=== PATIENT | female | born 2000 | race Caucasian/White ===

== ENCOUNTER 2018-03-20 01:42 | Emergency (ER) | payer BC ==
[2018-03-20] MEDS ORDERED: NA CHLORIDE 0.9% 1,000 ML ONE (02:04)
[2018-03-20] MEDS ORDERED: KETOROLAC 30 MG/ML INJ ONE (02:04)
[2018-03-20] MEDS ORDERED: METOCLOPRAMIDE 10 MG/2mL INJ ONE (02:04)
--- NOTE | 2018-03-20 02:49 | EDPHYS ---
Physician Documentation [facility] Name: Keisha Dixon Age: 17 yrs Sex: Female : 2000 Arrival Date: 03/20/2018 Time: 01:43 Bed 5 Private MD: Ramin Baptiste ED Physician Rinku Nam HPI: 03/20 01:53 This 17 yrs old Female presents to ER via Unassigned with complaints of rn Headache < 24hrs Old. 01:53 The patient complains of pain to the forehead. The patient describes the headache as rn throbbing. 01:53 Onset: The symptoms/episode began/occurred yesterday. Associated signs and symptoms: rn Pertinent positives: This patient does not have any pertinent positive signs or symptoms associated with a headache. Pertinent negatives: altered mental status, dizziness, fever, malaise, nausea, neck stiffness, rash, vision changes, vision loss, vomiting, vertigo. Severity of symptoms: At its worst the pain was moderate, "similar to past headaches", in the emergency department the pain is unchanged. Headache History: The patient has had previous headaches and this one is similar to previous episodes. The patient has experienced similar episodes in the past. Reports hx of headaches, + frontal headache, throbbing, similar to previous headaches except not going away, began yesterday, no fever/trauma/nausea/vomiting/vision changes/focal neurological complaint.. 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 - Social history:: Smoking status: Patient uses tobacco products, smokes one pack cigarettes per day. - Ebola Screening: : No symptoms or risks identified at this time. - Family history:: not pertinent. - Hospitalizations: : No recent hospitalization is reported. ROS: 01:53 Constitutional: Negative for fever, chills, and weight loss, Eyes: Negative for injury, rn pain, redness, and discharge, Neck: Negative for injury, pain, and swelling, Cardiovascular: Negative for chest pain, palpitations, and edema, Respiratory: Negative for shortness of breath, cough, wheezing, and pleuritic chest pain, Abdomen/GI: Negative for abdominal pain, nausea, vomiting, diarrhea, and constipation, MS/Extremity: Negative for injury and deformity, Skin: Negative for injury, rash, and discoloration, Neuro: Negative for weakness, numbness, tingling, and seizure. Exam: 01:53 Constitutional: This is a well developed, well nourished patient who is awake, alert, rn and in no acute distress. Ambulatory to room, laying with legs crossed, comfortable. Head/Face: Normocephalic, atraumatic. Eyes: Pupils equal round and reactive to light, extra-ocular motions intact. Lids and lashes normal. Conjunctiva and sclera are non-icteric and not injected. Cornea within normal limits. Periorbital areas with no swelling, redness, or edema. ENT: MMM Neck: Trachea midline, no thyromegaly or masses palpated, and no cervical lymphadenopathy. Supple, full range of motion without nuchal rigidity, or vertebral point tenderness. No Meningismus. Skin: Warm, dry with normal turgor. Normal color with no rashes, no lesions, and no evidence of cellulitis. MS/ Extremity: Pulses equal, no cyanosis. Neurovascular intact. Full, normal range of motion. Equal circumference. Neuro: Awake and alert, GCS 15, oriented to person, place, time, and situation. Cranial nerves II-XII grossly intact. Motor strength 5/5 in all extremities. Sensory grossly intact. Cerebellar exam normal. Normal gait. Vital Signs: 01:55 BP 128 / 94; Pulse 88; Resp 16; Temp 98.0; Pulse Ox 99% on R/A; Weight 74.84 kg; Height aa1 5 ft. 6 in. (167.64 cm); Pain 8/10; 02:37 BP 95 / 52; Pulse 85; Resp 16; Pulse Ox 98% ; aa1 02:55 BP 111 / 72; Pulse 90; Resp 16; Pulse Ox 96% on R/A; aa1 01:55 Body Mass Index 26.63 (74.84 kg, 167.64 cm) aa1 Bowen Coma Score: 02:47 Eye Response: spontaneous(4). Verbal Response: oriented(5). Motor Response: obeys rn commands(6). Total: 15. MDM: 01:43 Patient medically screened. rn 02:47 Differential diagnosis: migraine, tension headache, vasomotor headache. Data reviewed: rn vital signs, nurses notes, and as a result, I will discharge patient. Counseling: I had a detailed discussion with the patient and/or guardian regarding: the historical points, exam findings, and any diagnostic results supporting the discharge/admit diagnosis, the need for outpatient follow up, to return to the emergency department if symptoms worsen or persist or if there are any questions or concerns that arise at home. Special discussion: I discussed with the patient/guardian in detail that at this point there is no indication for admission to the hospital. It is understood, however, that if the symptoms persist or worsen the patient needs to return immediately for re-evaluation. Based on the history and exam findings, there is no indication for further emergent testing or inpatient evaluation. I discussed with the patient/guardian the need to see the neurologist for further evaluation of the symptoms. I discussed with the patient/guardian the need to see the primary care provider for further evaluation of the symptoms. ED course: Pt wants to leave, states pain resolved, feels better. . 03/20 01:53 Order name: IV Start; Complete Time: 02:05 rn Administered Medications: 02:04 Drug: Reglan 10 mg Route: IVP; Site: left antecubital; ao 02:54 Follow up: Response: No adverse reaction; Pain is decreased aa1 02:04 Drug: TORadol 30 mg Route: IVP; Site: left antecubital; ao 02:54 Follow up: Response: No adverse reaction; Pain is decreased aa1 02:05 Drug: NS 0.9% 1000 ml Route: IV; Rate: 1000 ml; Site: left antecubital; ao 02:54 Follow up: IV Status: Completed infusion aa1 Disposition: 03/20/18 02:48 Discharged to Home. Impression: Headache. - Condition is Stable. - Discharge Instructions: General Headache Without Cause, Migraine Headache. - Medication Reconciliation Form, Thank You Letter, Antibiotic Education, Prescription Opioid Use form. - Follow up: Ramin Baptiste MD; When: As needed; Reason: Recheck today's complaints, Re-evaluation by your physician. - Problem is new. - Symptoms have improved. Signatures: Vanessa Modi RN RN aa1 Rinku Nam MD MD rn Ortiz, Alex, RN RN ao Corrections: (The following items were deleted from the chart) 02:57 02:48 03/20/2018 02:48 Discharged to Home. Impression: Headache. Condition is Stable. aa1 Forms are Medication Reconciliation Form, Thank You Letter, Antibiotic Education, Prescription Opioid Use. Follow up: aRmin Baptiste; When: As needed; Reason: Recheck today's complaints, Re-evaluation by your physician. Problem is new. Symptoms have improved. rn
--- NOTE | 2018-03-20 02:49 | ER ---
Nurse's Notes [facility] Name: Keisha Dixon Age: 17 yrs Sex: Female : 2000 Arrival Date: 03/20/2018 Time: 01:43 Bed 5 Private MD: Ramin Baptiste Diagnosis: Headache Presentation: 03/20 01:52 Presenting complaint: Patient states: frontal BAUMAN x 5 hrs. Reports no relief at home aa1 with Advil \T\ Tylenol. Transition of care: patient was not received from another setting of care. Onset of symptoms was March 19, 2018. Risk Assessment: Do you want to hurt yourself or someone else? Patient reports no desire to harm self or others. Initial Sepsis Screen: Does the patient meet any 2 criteria? No. Patient's initial sepsis screen is negative. Does the patient have a suspected source of infection? No. Patient's initial sepsis screen is negative. Care prior to arrival: None. 01:52 Method Of Arrival: Ambulatory aa1 01:52 Acuity: LUIS F 3 aa1 Triage Assessment: 02:00 Headache History: The patient has had previous headaches. General: Appears in no ao apparent distress. comfortable, Behavior is calm, cooperative, appropriate for age. Pain: Pain currently is 8 out of 10 on a pain scale. Pain began suddenly, Also complains of no other associated symptoms. 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 - Social history:: Smoking status: Patient uses tobacco products, smokes one pack cigarettes per day. - Ebola Screening: : No symptoms or risks identified at this time. - Family history:: not pertinent. - Hospitalizations: : No recent hospitalization is reported. Screenin:56 Abuse screen: Denies threats or abuse. Denies injuries from another. Nutritional aa1 screening: No deficits noted. Tuberculosis screening: No symptoms or risk factors identified. Fall Risk None identified. Assessment: 01:48 General: Appears in no apparent distress. comfortable, well groomed, well developed, ao Behavior is calm, cooperative, appropriate for age. Pain: Complains of pain in Headache. Neuro: Level of Consciousness is awake, alert, obeys commands, Oriented to person, place, time, situation, Appropriate for age Moves all extremities. Full function Speech is normal, Facial symmetry appears normal. Neuro: Reports headache in entire. Cardiovascular: Capillary refill < 3 seconds Patient's skin is warm and dry. Respiratory: Airway is patent Respiratory effort is even, unlabored, Respiratory pattern is regular, symmetrical. GI: Abdomen is non-distended. : No signs and/or symptoms were reported regarding the genitourinary system. EENT: No signs and/or symptoms were reported regarding the EENT system. Derm: No signs and/or symptoms reported regarding the dermatologic system. Skin is intact, Skin temperature is warm. Musculoskeletal: Circulation, motion, and sensation intact. Range of motion: intact in all extremities. 02:37 Reassessment: Patient appears in no apparent distress at this time. Patient and/or aa1 family updated on plan of care and expected duration. Pain level reassessed. Patient is alert, oriented x 3, equal unlabored respirations, skin warm/dry/pink. Awaiting provider reassessment. 02:55 Reassessment: Patient appears in no apparent distress at this time. Patient is alert, aa1 oriented x 3, equal unlabored respirations, skin warm/dry/pink. Discussed d/c \T\ f/u instructions with pt; denies questions or concerns at this time Patient states feeling better. Vital Signs: 01:55 BP 128 / 94; Pulse 88; Resp 16; Temp 98.0; Pulse Ox 99% on R/A; Weight 74.84 kg; Height aa1 5 ft. 6 in. (167.64 cm); Pain 8/10; 02:37 BP 95 / 52; Pulse 85; Resp 16; Pulse Ox 98% ; aa1 02:55 BP 111 / 72; Pulse 90; Resp 16; Pulse Ox 96% on R/A; aa1 01:55 Body Mass Index 26.63 (74.84 kg, 167.64 cm) aa1 Rafael Coma Score: 02:47 Eye Response: spontaneous(4). Verbal Response: oriented(5). Motor Response: obeys rn commands(6). Total: 15. ED Course: 01:43 Patient arrived in ED. do 01:43 [place], Ramin, MD is Private Physician. do 01:43 Rinku Nam MD is Attending Physician. rn 01:45 Javi Lynn RN is Primary Nurse. ao 01:54 Triage completed. aa1 01:55 Arm band placed on right wrist. Patient placed in an exam room, on a stretcher. aa1 02:00 Patient has correct armband on for positive identification. Bed in low position. Call aa1 light in reach. Pulse ox on. NIBP on. 02:03 Inserted saline lock: 20 gauge in left antecubital area, using aseptic technique. aa1 02:48 Ramin Baptiste MD is Referral Physician. rn 02:56 No provider procedures requiring assistance completed. IV discontinued, intact, aa1 bleeding controlled, No redness/swelling at site. Pressure dressing applied. Administered Medications: 02:04 Drug: Reglan 10 mg Route: IVP; Site: left antecubital; ao 02:54 Follow up: Response: No adverse reaction; Pain is decreased aa1 02:04 Drug: TORadol 30 mg Route: IVP; Site: left antecubital; ao 02:54 Follow up: Response: No adverse reaction; Pain is decreased aa1 02:05 Drug: NS 0.9% 1000 ml Route: IV; Rate: 1000 ml; Site: left antecubital; ao 02:54 Follow up: IV Status: Completed infusion aa1 Outcome: 02:48 Discharge ordered by . rn 02:57 Discharged to home ambulatory. aa1 02:57 Condition: good 02:57 Discharge instructions given to patient, Instructed on discharge instructions, follow up and referral plans. Demonstrated understanding of instructions, follow-up care, medications. 02:57 Patient left the ED. aa1 Signatures: Vanessa Modi RN RN aa1 Rinku Nam MD MD rn Ortiz, Alex, RN RN ao Ogletree, Danielle do
== END 2018-03-20 02:57 | disposition home or self-care (01) ==
LOC: ER 01:42
DX: R51 Headache (principal); F17.210 Nicotine dependence, cigarettes, uncomplicated
CPT/HCPCS: 96361; 96374; 96375; 99283; J2765; J7030

== ENCOUNTER 2018-05-09 19:41 | Emergency (ER) | payer BC ==
[2018-05-09] MEDS ORDERED: DIPHENHYDRAMINE 50 MG/ML VIAL ONE (20:47)
[2018-05-09] MEDS ORDERED: METHYLPREDNISOLONE 40 MG INJ ONE (20:47)
[2018-05-09] MEDS ORDERED: KETOROLAC 30 MG/ML INJ ONE (20:47)
[2018-05-09] MEDS ORDERED: NA CHLORIDE 0.9% 1,000 ML ONE (20:47)
[2018-05-09 21:04] LABS: Absolute Lymphocytes (CBC) 2.3 K/uL (0.7-4.9); Absolute Monocytes 0.6 K/uL (0.1-1.3); Absolute Neutrophil 7.2 K/uL (1.8-8.0); Basophils % 0.9 % (0-1.3); Eosinophils % 1.7 % (0-4.4); Lymphocytes % 22.1 % (15.3-44.8); MCH 30.9 pg (27.0-35.0); MCV 89.2 fL (80-100); MPV 7.1 fL (7.6-11.3); Monocytes % 6.2 % (3.3-12.3); RBC Red Blood Cell Count 4.93 M/uL (3.86-4.86)
[2018-05-09 21:14] LABS: BUN Blood Urea Nitrogen 8 mg/dL (7-18); Bicarbonate 27 mmol/L (21-32); Glucose Level 106 mg/dL (74-106); Potassium 3.7 mmol/L (3.5-5.1); Sodium Level 142 mmol/L (136-145)
--- NOTE | 2018-05-09 21:30 | EDPHYS ---
Physician Documentation [facility] Name: Keisha Dixon Age: 18 yrs Sex: Female : 2000 Arrival Date: 05/09/2018 Time: 19:51 Bed 10 Private MD: ED Physician Arya Kirby HPI: 05/09 20:30 This 18 yrs old Female presents to ER via Ambulatory with complaints of kav Headache. 20:30 The patient complains of pain to the left side of the back of head, left temporal area, kav right side of the back of head and right temporal area. The patient describes the headache as aching, constant, unrelenting. Onset: The symptoms/episode began/occurred acutely, 10 hour(s) ago. Associated signs and symptoms: Pertinent positives: Photophobia Pertinent negatives: altered mental status, fever, neck stiffness, sinus congestion, sinus tenderness, vision changes, vision loss, vomiting. Severity of symptoms: At its worst the pain was a " 10" out of "10". Headache History: The patient has had previous headaches and this one is similar to previous episodes, and this one is more severe than previous episodes. The symptoms are alleviated by Darkened room, over the counter pain medication, OTC NSAIDS, the symptoms are aggravated by lights. The patient has experienced similar episodes in the past, chronically. The patient has not recently seen a physician. No daily medication for migraine management. . 20:30 Patient reports home medications include: Buspar, Wellbutrin and Vyvance. She reports kav taking motrin 600 mg for headache with no relief of migraine pain. 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 - Social history:: Smoking status: Patient uses tobacco products, smokes one pack cigarettes per day. - Ebola Screening: : No symptoms or risks identified at this time. - Family history:: not pertinent. - Hospitalizations: : No recent hospitalization is reported. ROS: 20:30 Constitutional: Negative for fever, chills, and weight loss, Eyes: Negative for injury, kav pain, redness, and discharge, ENT: Negative for injury, pain, and discharge, Neck: Negative for injury, pain, and swelling, Cardiovascular: Negative for chest pain, palpitations, and edema, Respiratory: Negative for shortness of breath, cough, wheezing, and pleuritic chest pain, Abdomen/GI: Negative for abdominal pain, nausea, vomiting, diarrhea, and constipation, Back: Negative for injury and pain, : Negative for injury, bleeding, discharge, and swelling, MS/Extremity: Negative for injury and deformity, Skin: Negative for injury, rash, and discoloration, Psych: Negative for depression, anxiety, suicide ideation, homicidal ideation, and hallucinations, Allergy/Immunology: Negative for hives, rash, and allergies, Endocrine: Negative for neck swelling, polydipsia, polyuria, polyphagia, and marked weight changes, Hematologic/Lymphatic: Negative for swollen nodes, abnormal bleeding, and unusual bruising. 20:30 Neuro: Positive for headache, Negative for dizziness, gait disturbance, loss of consciousness, seizure activity, speech changes, visual changes, weakness. Exam: 20:30 Constitutional: This is a well developed, well nourished patient who is awake, alert, kav and in no acute distress. Head/Face: Normocephalic, atraumatic. Eyes: Pupils equal round and reactive to light, extra-ocular motions intact. Lids and lashes normal. Conjunctiva and sclera are non-icteric and not injected. Cornea within normal limits. Periorbital areas with no swelling, redness, or edema. ENT: Nares patent. No nasal discharge, no septal abnormalities noted. Tympanic membranes are normal and external auditory canals are clear. Oropharynx with no redness, swelling, or masses, exudates, or evidence of obstruction, uvula midline. Mucous membranes moist. Neck: Trachea midline, no thyromegaly or masses palpated, and no cervical lymphadenopathy. Supple, full range of motion without nuchal rigidity, or vertebral point tenderness. No Meningismus. Chest/axilla: Normal chest wall appearance and motion. Nontender with no deformity. No lesions are appreciated. Cardiovascular: Regular rate and rhythm with a normal S1 and S2. No gallops, murmurs, or rubs. Normal PMI, no JVD. No pulse deficits. Respiratory: Lungs have equal breath sounds bilaterally, clear to auscultation and percussion. No rales, rhonchi or wheezes noted. No increased work of breathing, no retractions or nasal flaring. Abdomen/GI: Soft, non-tender, with normal bowel sounds. No distension or tympany. No guarding or rebound. No evidence of tenderness throughout. Back: No spinal tenderness. No costovertebral tenderness. Full range of motion. Female : Normal external genitalia. Skin: Warm, dry with normal turgor. Normal color with no rashes, no lesions, and no evidence of cellulitis. MS/ Extremity: Pulses equal, no cyanosis. Neurovascular intact. Full, normal range of motion. Psych: Awake, alert, with orientation to person, place and time. Behavior, mood, and affect are within normal limits. 20:30 Neuro: Orientation: is normal, appropriate for stated age, no acute changes, Mentation: is normal, appropriate for stated age, no acute changes, responsive to voice lucid, able to follow commands, Memory: is normal, appropriate for stated age, no acute changes, Cranial nerves: grossly normal, is grossly normal based on the patient's age, no acute changes, CN II- XII are normal as tested, visual conley are intact. Funduscopic exam reveals no obvious abnormalities, discs that are sharp, extraocular movements are intact, Facial palsy and sensory deficits are absent. no gross hearing deficit,. Nystagmus is absent. Speech is clear and appropriate. Gag reflex present. Tongue strength is normal, Cerebellar function: is grossly normal, is grossly normal based on the patient's age, normal finger to nose testing, Motor: is normal, Sensation: is normal, no obvious gross deficits, appropriate no acute changes, Deep tendon reflexes are normal, Babinski testing is normal, seizure activity, is not displayed by the patient, Abnormal movements: there are no abnormal movements. Vital Signs: 20:14 BP 129 / 68; Pulse 106; Resp 18; Temp 98.8; Pulse Ox 98% on R/A; Weight 74.84 kg; aa1 Height 5 ft. 7 in. (170.18 cm); Pain 10/10; 21:44 BP 122 / 73; Pulse 86; Resp 16; Temp 98.4; Pulse Ox 99% on R/A; Pain 4/10; aa1 20:14 Body Mass Index 25.84 (74.84 kg, 170.18 cm) aa1 Phoenix Coma Score: 20:30 Eye Response: spontaneous(4). Verbal Response: oriented(5). Motor Response: obeys kav commands(6). Total: 15. MDM: 20:14 Medical screening is not applicable. kav 20:30 Differential diagnosis: cluster headache, migraine, sinusitis, tension headache, kav vasomotor headache. Data reviewed: vital signs, nurses notes. 05/09 20:30 Order name: CBC with Diff; Complete Time: 21:18 kav 05/09 20:30 Order name: BMP; Complete Time: 21:18 kav Administered Medications: 20:50 Drug: NS 0.9% 1000 ml Route: IV; Rate: 1000 ml; Site: left antecubital; aa1 21:46 Follow up: IV Status: Completed infusion aa1 20:55 Drug: SOLU-Medrol 40 mg Route: IVP; Site: left antecubital; aa1 21:45 Follow up: Response: No adverse reaction; Marked relief of symptoms aa1 20:57 Drug: TORadol 30 mg Route: IVP; Site: left antecubital; aa1 21:46 Follow up: Response: No adverse reaction; Marked relief of symptoms; Pain is decreased aa1 20:59 Drug: Benadryl 25 mg Route: IVP; Site: left antecubital; aa1 21:46 Follow up: Response: No adverse reaction; Marked relief of symptoms aa1 Disposition: 05/10 06:40 Co-signature as Attending Physician, Arya Kirby MD I agree with the assessment and annie plan of care. Disposition: 05/09/18 21:29 Discharged to Home. Impression: Migraine. - Condition is Stable. - Discharge Instructions: Migraine Headache. - Prescriptions for Ibuprofen 800 mg Oral Tablet - take 1 tablet by ORAL route every 8 hours As needed take with food; 30 tablet. - Medication Reconciliation Form, Thank You Letter form. - Follow up: Private Physician; When: 2 - 3 days; Reason: Recheck today's complaints, Continuance of care, Re-evaluation by your physician. - Problem is new. - Symptoms have improved. Signatures: Dispatcher [employer] EDVanessa Atkinson RN RN aa1 Arya Kirby MD MD cha Vern, Katherine, PROSTHODONTIST/EDUCATOR PROSTHODONTIST/EDUCATOR kav Corrections: (The following items were deleted from the chart) 05/09 21:37 20:30 Urine Dipstick-Ancillary ordered. savannah aa1 21:46 21:29 05/09/2018 21:29 Discharged to Home. Impression: Migraine. Condition is Stable. aa1 Discharge Instructions: Migraine Headache. Prescriptions for Ibuprofen 800 mg Oral Tablet - take 1 tablet by ORAL route every 8 hours As needed take with food; 30 tablet. and Forms are Medication Reconciliation Form, Thank You Letter, Antibiotic Education, Prescription Opioid Use. Follow up: Private Physician; When: 2 - 3 days; Reason: Recheck today's complaints, Continuance of care, Re-evaluation by your physician. Problem is new. Symptoms have improved. kav
--- NOTE | 2018-05-09 21:30 | ER ---
Nurse's Notes [facility] Name: Keisha Dixon Age: 18 yrs Sex: Female : 2000 Arrival Date: 05/09/2018 Time: 19:51 Bed 10 Private MD: Diagnosis: Migraine Presentation: 05/09 20:12 Presenting complaint: Patient states: migraine since this am. Reports hx of migraines aa1 and has been seen by a neurologist and was told they were triggered by stress. C/O BAUMAN all over 03/09. Transition of care: patient was not received from another setting of care. Onset of symptoms was May 09, 2018. Risk Assessment: Do you want to hurt yourself or someone else? Patient reports no desire to harm self or others. Initial Sepsis Screen: Does the patient meet any 2 criteria? HR > 90 bpm. Does the patient have a suspected source of infection? No. Patient's initial sepsis screen is negative. Care prior to arrival: None. 20:12 Method Of Arrival: Ambulatory aa1 20:12 Acuity: LUIS F 3 aa1 Triage Assessment: 20:14 Headache History: The patient has had previous headaches and this one is similar to aa1 previous episodes. 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 - Social history:: Smoking status: Patient uses tobacco products, smokes one pack cigarettes per day. - Ebola Screening: : No symptoms or risks identified at this time. - Family history:: not pertinent. - Hospitalizations: : No recent hospitalization is reported. Screenin:16 Abuse screen: Denies threats or abuse. Denies injuries from another. Nutritional aa1 screening: No deficits noted. Tuberculosis screening: No symptoms or risk factors identified. Fall Risk None identified. Assessment: 20:16 General: Appears in no apparent distress. comfortable, Behavior is calm, cooperative, aa1 appropriate for age. Pain: Complains of pain in face and scalp Pain currently is 10 out of 10 on a pain scale. Quality of pain is described as aching, throbbing, Is continuous. Neuro: Level of Consciousness is awake, alert, obeys commands, Oriented to person, place, time, situation, Moves all extremities. Full function Gait is steady, Speech is normal, Facial symmetry appears normal, Pupils are PERRLA, Reports headache in entire parietal area, frontal area, occipital area. Respiratory: Airway is patent Respiratory effort is even, unlabored, Respiratory pattern is regular, symmetrical. GI: Reports nausea, Patient currently denies abdominal pain, vomiting. : No signs and/or symptoms were reported regarding the genitourinary system. EENT: No signs and/or symptoms were reported regarding the EENT system. Derm: Skin is intact, is healthy with good turgor, Skin is pink, warm \T\ dry. Musculoskeletal: Circulation, motion, and sensation intact. Capillary refill < 3 seconds. 21:44 Reassessment: Patient appears in no apparent distress at this time. Patient is alert, aa1 oriented x 3, equal unlabored respirations, skin warm/dry/pink. Discussed d/c \T\ f/u instructions with pt; denies questions or concerns at this time Patient states feeling better. Patient states symptoms have improved. Vital Signs: 20:14 BP 129 / 68; Pulse 106; Resp 18; Temp 98.8; Pulse Ox 98% on R/A; Weight 74.84 kg; aa1 Height 5 ft. 7 in. (170.18 cm); Pain 10/10; 21:44 BP 122 / 73; Pulse 86; Resp 16; Temp 98.4; Pulse Ox 99% on R/A; Pain 4/10; aa1 20:14 Body Mass Index 25.84 (74.84 kg, 170.18 cm) aa1 Rafael Coma Score: 20:30 Eye Response: spontaneous(4). Verbal Response: oriented(5). Motor Response: obeys kav commands(6). Total: 15. ED Course: 19:51 Patient arrived in ED. ag3 20:02 Vanessa Modi, MERLYN is Primary Nurse. aa1 20:13 Triage completed. aa1 20:14 [facility] kav 20:14 Arya Kirby MD is Attending Physician. kav 20:14 Arm band placed on right wrist. aa1 20:16 Patient has correct armband on for positive identification. Call light in reach. aa1 20:20 Warm blanket given. aa1 20:45 Initial lab(s) drawn, by me, sent to lab. Inserted saline lock: 20 gauge in left aa1 antecubital area, using aseptic technique. Blood collected. 20:48 Warm blanket given. aa1 21:44 No provider procedures requiring assistance completed. IV discontinued, intact, aa1 bleeding controlled, No redness/swelling at site. Pressure dressing applied. Administered Medications: 20:50 Drug: NS 0.9% 1000 ml Route: IV; Rate: 1000 ml; Site: left antecubital; aa1 21:46 Follow up: IV Status: Completed infusion aa1 20:55 Drug: SOLU-Medrol 40 mg Route: IVP; Site: left antecubital; aa1 21:45 Follow up: Response: No adverse reaction; Marked relief of symptoms aa1 20:57 Drug: TORadol 30 mg Route: IVP; Site: left antecubital; aa1 21:46 Follow up: Response: No adverse reaction; Marked relief of symptoms; Pain is decreased aa1 20:59 Drug: Benadryl 25 mg Route: IVP; Site: left antecubital; aa1 21:46 Follow up: Response: No adverse reaction; Marked relief of symptoms aa1 Outcome: 21:29 Discharge ordered by . kav 21:44 Discharged to home ambulatory. aa1 21:44 Condition: good 21:44 Discharge instructions given to patient, Instructed on discharge instructions, follow up and referral plans. medication usage, Demonstrated understanding of instructions, follow-up care, medications, Prescriptions given X 1. 21:46 Patient left the ED. aa1 Signatures: Vanessa Modi RN RN aa1 Nya Dockery, EMPLOYMENT INTERVIEWER EMPLOYMENT INTERVIEWER Ashly Damico ag3
== END 2018-05-09 21:46 | disposition home or self-care (01) ==
LOC: ER 19:41
DX: G43.909 Migraine, unspecified, not intractable, without status migrainosus (principal); F17.210 Nicotine dependence, cigarettes, uncomplicated; F90.9 Attention-deficit hyperactivity disorder, unspecified type; F32.9 Major depressive disorder, single episode, unspecified; F41.9 Anxiety disorder, unspecified
CPT/HCPCS: 36415; 80048; 85025; 96361; 96374; 96375; 99284; J2920; J7030

== ENCOUNTER 2018-06-10 21:07 | Emergency (ER) | payer BC ==
[2018-06-10 22:09] LABS: Urine Bacteria 20-50 /HPF (<20); Urine Culture Reflex Order REFLEXED; Urine Mucus 1+ /HPF (NONE SEEN); Urine RBC <5 /HPF (NONE SEEN)
[2018-06-10 22:10] LABS: Urine Blood NEGATIVE (NEG); Urine Glucose NEGATIVE (NEG); Urine Protein NEGATIVE (NEG)
[2018-06-10 22:28] LABS: Absolute Lymphocytes (CBC) 3.2 K/uL (0.7-4.9); Absolute Monocytes 0.9 K/uL (0.1-1.3); Absolute Neutrophil 6.3 K/uL (1.8-8.0); Basophils % 0.8 % (0-1.3); Eosinophils % 2.8 % (0-4.4); Hematocrit 45.1 % (36.0-45.0); Lymphocytes % 29.7 % (15.3-44.8); MPV 7.3 fL (7.6-11.3); Monocytes % 8.2 % (3.3-12.3); RBC Red Blood Cell Count 5.01 M/uL (3.86-4.86)
[2018-06-10 22:42] LABS: ALT/SGPT 34 U/L (12-78); AST/SGOT 15 U/L (15-37); Albumin 3.8 g/dL (3.4-5.0); Alkaline Phosphatase 99 U/L (45-117); BUN Blood Urea Nitrogen 10 mg/dL (7-18); Bicarbonate 27 mmol/L (21-32); Bilirubin Direct < 0.1 mg/dL (0-0.2); Bilirubin Total 0.3 mg/dL (0.2-1.0); Glucose Level 81 mg/dL (74-106); Lipase 172 U/L (73-393); Potassium 3.9 mmol/L (3.5-5.1); Protein, Total 7.6 g/dL (6.4-8.2); Sodium Level 143 mmol/L (136-145)
[2018-06-11] MEDS ORDERED: KETOROLAC 30 MG/ML INJ ONE (00:37)
--- NOTE | 2018-06-11 01:19 | EDPHYS ---
Physician Documentation [facility] Name: Keisha Dixon Age: 18 yrs Sex: Female : 2000 Arrival Date: 06/10/2018 Time: 21:10 Bed 3 Private MD: Ramin Baptiste ED Physician Arya Kirby HPI: 06/10 23:00 This 18 yrs old Female presents to ER via Ambulatory with complaints of pm1 Abdominal Pain. 23:00 The patient presents with abdominal pain right lower quadrant. Onset: The pm1 symptoms/episode began/occurred today. The symptoms do not radiate. Associated signs and symptoms: Pertinent negatives: nausea, vomiting, and diarrhea, chest pain, shortness of breath. Associated signs and symptoms: Pertinent positives: constipation. The symptoms are described as sharp. Modifying factors: The symptoms are alleviated by nothing, the symptoms are aggravated by nothing. Severity of pain: in the emergency department the pain is actually worse. The patient has not experienced similar symptoms in the past. The patient has not recently seen a physician. 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 - Social history:: Smoking status: Patient uses tobacco products, smokes one pack cigarettes per day. - Ebola Screening: : No symptoms or risks identified at this time. ROS: 23:00 Constitutional: Negative for fever, chills, and weight loss, Eyes: Negative for injury, pm1 pain, redness, and discharge, ENT: Negative for injury, pain, and discharge, Neck: Negative for injury, pain, and swelling, Cardiovascular: Negative for chest pain, palpitations, and edema, Respiratory: Negative for shortness of breath, cough, wheezing, and pleuritic chest pain. 23:00 Back: Negative for injury and pain, : Negative for injury, bleeding, discharge, and swelling, MS/Extremity: Negative for injury and deformity, Skin: Negative for injury, rash, and discoloration, Neuro: Negative for headache, weakness, numbness, tingling, and seizure. 23:00 Abdomen/GI: Positive for abdominal pain, of the right lower quadrant, Negative for nausea, vomiting, and diarrhea. Exam: 23:00 Constitutional: This is a well developed, well nourished patient who is awake, alert, pm1 and in no acute distress. Head/Face: Normocephalic, atraumatic. Eyes: Pupils equal round and reactive to light, extra-ocular motions intact. Lids and lashes normal. Conjunctiva and sclera are non-icteric and not injected. Cornea within normal limits. Periorbital areas with no swelling, redness, or edema. ENT: Nares patent. No nasal discharge, no septal abnormalities noted. Tympanic membranes are normal and external auditory canals are clear. Oropharynx with no redness, swelling, or masses, exudates, or evidence of obstruction, uvula midline. Mucous membranes moist. Neck: Trachea midline, no thyromegaly or masses palpated, and no cervical lymphadenopathy. Supple, full range of motion without nuchal rigidity, or vertebral point tenderness. No Meningismus. Chest/axilla: Normal chest wall appearance and motion. Nontender with no deformity. No lesions are appreciated. Cardiovascular: Regular rate and rhythm with a normal S1 and S2. No gallops, murmurs, or rubs. Normal PMI, no JVD. No pulse deficits. Respiratory: Lungs have equal breath sounds bilaterally, clear to auscultation and percussion. No rales, rhonchi or wheezes noted. No increased work of breathing, no retractions or nasal flaring. 23:00 Back: No spinal tenderness. No costovertebral tenderness. Full range of motion. Skin: Warm, dry with normal turgor. Normal color with no rashes, no lesions, and no evidence of cellulitis. MS/ Extremity: Pulses equal, no cyanosis. Neurovascular intact. Full, normal range of motion. 23:00 Abdomen/GI: Inspection: abdomen appears normal, Bowel sounds: normal, Palpation: soft, mild abdominal tenderness, in the right lower quadrant, mass, is not appreciated, rebound tenderness, is not appreciated. 23:00 Neuro: Orientation: is normal, Motor: is normal, moves all fours. Vital Signs: 21:26 BP 113 / 73; Pulse 96; Resp 18 S; Temp 98.1(O); Pulse Ox 98% on R/A; Weight 74.84 kg bb (R); Height 5 ft. 7 in. (170.18 cm) (R); Pain 8/10; 22:30 BP 119 / 80; Pulse 82; Resp 16; Pulse Ox 100% on R/A; lp1 22:54 BP 115 / 79; Pulse 81; Resp 18; Pulse Ox 99% on R/A; Pain 8/10; ed1 23:43 BP 121 / 85; Pulse 78; Resp 18; Pulse Ox 100% ; ms 06/11 01:32 Pain 4/10; ed1 01:42 BP 115 / 61; Pulse 88; Resp 18; Temp 98.4(O); Pulse Ox 100% on R/A; Pain 4/10; ed1 06/10 21:26 Body Mass Index 25.84 (74.84 kg, 170.18 cm) bb MDM: 06/10 21:40 Patient medically screened. pm1 06/11 01:16 Data reviewed: vital signs. Data interpreted: Pulse oximetry: on room air is 100 %. pm1 Interpretation: normal. Counseling: I had a detailed discussion with the patient and/or guardian regarding: the historical points, exam findings, and any diagnostic results supporting the discharge/admit diagnosis, lab results, radiology results, the need for outpatient follow up, to return to the emergency department if symptoms worsen or persist or if there are any questions or concerns that arise at home. 01:16 ED course: contaminated urine specimen and no urinary symptoms. No antibiotics at this pm1 time. Pending urine culture. 06/10 21:41 Order name: Basic Metabolic Panel; Complete Time: 01:02 pm1 06/10 21:41 Order name: CBC with Diff; Complete Time: 01:02 pm1 06/10 21:41 Order name: Creatinine for Radiology; Complete Time: 01:02 pm1 06/10 21:41 Order name: Hepatic Function; Complete Time: 01:02 pm06/10 21:41 Order name: Lipase; Complete Time: 01:02 pm06/10 21:51 Order name: Urine Microscopic Only; Complete Time: 22:10 pm1 06/10 21:41 Order name: IV Saline Lock; Complete Time: 22:31 pm1 06/10 21:41 Order name: Labs collected and sent; Complete Time: 22:31 pm1 06/10 21:41 Order name: Urine Dipstick-Ancillary (obtain specimen); Complete Time: 21:52 pm1 06/10 21:55 Order name: CT Abd/Pelvis - W/Contrast: PO and IV contrast 1 06/10 22:00 Order name: Urine Dipstick--Ancillary (enter results); Complete Time: 01:02 [facility] 06/10 22:00 Order name: Urine --Ancillary (enter results); Complete Time: 01:02 [facility] 06/10 22:11 Order name: Urine Culture [facility] 06/10 21:41 Order name: Urine Test (obtain specimen); Complete Time: 21:52 pm1 Administered Medications: 00:32 Drug: TORadol 30 mg Route: IVP; Site: left antecubital; lp1 01:32 Follow up: Pain 4/10 Adult; Response: No adverse reaction; Pain is decreased ed1 Disposition: 06/11/18 01:18 Discharged to Home. Impression: Unspecified abdominal pain. - Condition is Stable. - Discharge Instructions: Abdominal Pain, Adult. - Medication Reconciliation Form, Thank You Letter form. - Follow up: Emergency Department; When: As needed; Reason: Worsening of condition. Follow up: Private Physician; When: 2 - 3 days; Reason: Recheck today's complaints, Continuance of care, Re-evaluation by your physician. - Problem is new. - Symptoms have improved. Addendum: 06/14/2018 06:53 Co-signature as Attending Physician, Arya Kirby MD I agree with the assessment and c perry plan of care. Signatures: Dispatcher [employer] [facility] Arya Kirby MD MD cha Ballard, Brenda, RN RN Mindy Gonzalez LVN TOOL ROOM GEAR MACHINE OPERATOR ed1 Galilea Connor RN RN lp1 Ramon Massey, CAR DUMPER OPERATOR CAR DUMPER OPERATOR pm1 Corrections: (The following items were deleted from the chart) 06/11 01:44 01:18 06/11/2018 01:18 Discharged to Home. Impression: Unspecified abdominal pain. ed1 Condition is Stable. Forms are Medication Reconciliation Form, Thank You Letter, Antibiotic Education, Prescription Opioid Use. Follow up: Emergency Department; When: As needed; Reason: Worsening of condition. Follow up: Private Physician; When: 2 - 3 days; Reason: Recheck today's complaints, Continuance of care, Re-evaluation by your physician. Problem is new. Symptoms have improved. pm1
--- NOTE | 2018-06-11 01:19 | ER ---
Nurse's Notes [facility] Name: Keisha Dixon Age: 18 yrs Sex: Female : 2000 Arrival Date: 06/10/2018 Time: 21:10 Bed 3 Private MD: Ramin Baptiste Diagnosis: Unspecified abdominal pain Presentation: 06/10 21:23 Presenting complaint: Patient states: she is having right lower quad pain all day pain bb is getting worse, no vomiting but she feels nauseous. Transition of care: patient was not received from another setting of care. Onset of symptoms was June 10, 2018. Risk Assessment: Do you want to hurt yourself or someone else? Patient reports no desire to harm self or others. Initial Sepsis Screen: Does the patient meet any 2 criteria? No. Patient's initial sepsis screen is negative. Does the patient have a suspected source of infection? No. Patient's initial sepsis screen is negative. Care prior to arrival: None. 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 - Social history:: Smoking status: Patient uses tobacco products, smokes one pack cigarettes per day. - Ebola Screening: : No symptoms or risks identified at this time. Screenin:55 Abuse screen: Denies threats or abuse. Denies injuries from another. Nutritional ed1 screening: No deficits noted. Tuberculosis screening: No symptoms or risk factors identified. Fall Risk No fall in past 12 months (0 pts). No secondary diagnosis (0 pts). IV access (20 points). Ambulatory Aid- None/Bed Rest/Nurse Assist (0 pts). Gait- Normal/Bed Rest/Wheelchair (0 pts) Mental Status- Oriented to own ability (0 pts). Total Potts Fall Scale indicates No Risk (0-24 pts). Assessment: 22:00 General: Appears uncomfortable, Behavior is appropriate for age. Pain: Complains of lp1 pain in right lower quadrant and right inguinal area Pain currently is 8 out of 10 on a pain scale. Quality of pain is described as sharp. Neuro: Level of Consciousness is awake, alert, obeys commands, Oriented to person, place, time, situation. Cardiovascular: Patient's skin is warm and dry. Respiratory: Respiratory effort is even, unlabored, Respiratory pattern is regular. GI: Abdomen is non-distended, Bowel sounds present X 4 quads. Abdomen is tender to palpation in right lower quadrant. : No signs and/or symptoms were reported regarding the genitourinary system. EENT: No signs and/or symptoms were reported regarding the EENT system. Derm: Skin is pink, warm \T\ dry. Musculoskeletal: No deficits noted. 22:54 Reassessment: Patient appears in no apparent distress at this time. No changes from ed1 previously documented assessment. Patient and/or family updated on plan of care and expected duration. Pain level reassessed. Patient is alert, oriented x 3, equal unlabored respirations, skin warm/dry/pink. 06/11 00:30 Reassessment: Patient complaint of headache, Provider notified. lp1 01:42 Reassessment: Patient appears in no apparent distress at this time. Patient and/or ed1 family updated on plan of care and expected duration. Pain level reassessed. Patient is alert, oriented x 3, equal unlabored respirations, skin warm/dry/pink. Patient states feeling better. Patient states symptoms have improved. Vital Signs: 06/10 21:26 BP 113 / 73; Pulse 96; Resp 18 S; Temp 98.1(O); Pulse Ox 98% on R/A; Weight 74.84 kg bb (R); Height 5 ft. 7 in. (170.18 cm) (R); Pain 8/10; 22:30 BP 119 / 80; Pulse 82; Resp 16; Pulse Ox 100% on R/A; lp1 22:54 BP 115 / 79; Pulse 81; Resp 18; Pulse Ox 99% on R/A; Pain 8/10; ed1 23:43 BP 121 / 85; Pulse 78; Resp 18; Pulse Ox 100% ; ms 06/11 01:32 Pain 4/10; ed1 01:42 BP 115 / 61; Pulse 88; Resp 18; Temp 98.4(O); Pulse Ox 100% on R/A; Pain 4/10; ed1 06/10 21:26 Body Mass Index 25.84 (74.84 kg, 170.18 cm) bb ED Course: 06/10 21:10 Patient arrived in ED. es 21:11 Ramin Baptiste MD is Private Physician. es 21:25 Triage completed. bb 21:26 Arm band placed on right wrist. bb 21:39 Ramon Massey NP is PHCP. pm1 21:39 Arya Kirby MD is Attending Physician. pm1 21:42 Galilea Connor, RN is Primary Nurse. lp1 22:15 Missed attempt(s): 20 gauge in right antecubital area. Inserted saline lock: 20 gauge lp1 in left antecubital area, using aseptic technique. Blood collected. 22:55 Patient has correct armband on for positive identification. Placed in gown. Bed in low ed1 position. Call light in reach. Side rails up X 1. Pulse ox on. NIBP on. Door closed. Noise minimized. Lights dimmed. Warm blanket given. 0112 00:[address] via wheelchair. kw1 00:20 CT Abd/Pelvis - W/Contrast: PO and IV contrast In Process Unspecified. EDMS 00:21 CT completed. Patient tolerated procedure well. Patient moved back from CT. kw1 01:42 No provider procedures requiring assistance completed. IV discontinued, intact, ed1 bleeding controlled, No redness/swelling at site. Pressure dressing applied. Administered Medications: 00:32 Drug: TORadol 30 mg Route: IVP; Site: left antecubital; lp1 01:32 Follow up: Pain 4/10 Adult; Response: No adverse reaction; Pain is decreased ed1 Outcome: 01:18 Discharge ordered by . pm1 01:42 Discharged to home ambulatory. ed1 01:42 Condition: good 01:42 Discharge instructions given to patient, Instructed on discharge instructions, follow up and referral plans. Demonstrated understanding of instructions, follow-up care, Prescriptions given X 1. 01:44 Patient left the ED. ed1 Signatures: Dispatcher [employer] EDMS Temi Robles Brenda, RN RN Jessica Castrejon ms, Erika, PARA MACHINE OPERATOR PARA MACHINE OPERATOR ed1 Galilea Connor, RN RN lp1 Ramon Massey, ENGINEER ASSISTANT ENGINEER ASSISTANT pm1 Almita Osborne kw1 Corrections: (The following items were deleted from the chart) 06/10 21:28 21:26 LMP 04/30/2018 layla rich
--- NOTE | 2018-06-11 09:39 | RAD REPORT ---
EXAM DESCRIPTION: CT - Abdomen Pelvis W Contrast - 06/11/2018 4:59 am CLINICAL HISTORY: Right lower abdominal pain A preliminary report was provided at the time of the study and reviewed prior to final report. COMPARISON: None. TECHNIQUE: Biphasic, helical CT imaging of the abdomen and pelvis was performed following 100 ml non -ionic IV contrast. Oral contrast was given. All CT scans are performed using dose optimization technique as appropriate and may include automated exposure control or mA/KV adjustment according to patient size. FINDINGS: No suspicious findings in the lung bases. The liver, spleen, and pancreas show no suspicious findings. Gallbladder and biliary tree are also wi thout suspicious finding. Symmetric renal function is seen with no hydronephrosis or suspicious renal mass. No pyelonephritis o r acute parenchymal process. No bladder abnormalities. No adrenal abnormalities. No dilated bowel loops or bowel wall thickening. The appendix is identified and normal. Patient has m oderate stool volume throughout the colon. A few small nonspecific less than 1 centimeter mesenteric lymph nodes are present. No free air or pneumatosis. Small amount of free fluid in the cul-de-sac and right adnexa seen. This is within physiologic limits. A leaking or ruptured ovarian cyst is certainl y possible as well. No suspicious ovarian process seen. No fallopian tube dilatation. No hernia, mas s or bulky lymphadenopathy. No suspicious bony findings. IMPRESSION: No appendicitis or surgically emergent finding. Cul-de-sac and right adnexa free fluid is within physiologic limits but could be from a ruptured or l eaking ovarian cyst. No worrisome ovarian solid or cystic mass.
== END 2018-06-11 01:44 | disposition home or self-care (01) ==
LOC: ER 21:07
DX: R10.31 Right lower quadrant pain (principal); F17.210 Nicotine dependence, cigarettes, uncomplicated; F41.9 Anxiety disorder, unspecified; F32.9 Major depressive disorder, single episode, unspecified; F90.9 Attention-deficit hyperactivity disorder, unspecified type
CPT/HCPCS: 36415; 74177; 80048; 80076; 81003; 81015; 81025; 83690; 85025; 87086; 87088; 96374; 99284; Q9967

== ENCOUNTER 2018-07-29 09:51 | Emergency (ER) | payer BC ==
--- NOTE | 2018-07-29 10:40 | ER ---
Nurse's Notes [facility] Name: Keisha Dixon Age: 18 yrs Sex: Female : 2000 Arrival Date: 07/29/2018 Time: 09:53 Bed 16 Private MD: Ramin Baptiste Diagnosis: Dysuria;Urinary tract infection, site not specified Presentation: 07/29 10:03 Presenting complaint: Patient states: taylor been peeing every 5 mins and i its painful to hj pee for 5 days now; denies fever, reports chills; started taking Azo since Wednesday;. Transition of care: patient was not received from another setting of care. Onset of symptoms was July 29, 2018. Risk Assessment: Do you want to hurt yourself or someone else? Patient reports no desire to harm self or others. Initial Sepsis Screen: Does the patient meet any 2 criteria? Yes Does the patient have a suspected source of infection? Yes:. Care prior to arrival: None. 10:03 Method Of Arrival: Ambulatory 10:03 Acuity: LUIS F 4 Triage Assessment: 10:06 General: Appears in no apparent distress. uncomfortable, Behavior is calm, cooperative, hj appropriate for age. Pain: Complains of pain in pelvis. 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 - Social history:: Smoking status: Patient uses tobacco products, Patient/guardian denies using alcohol. - Ebola Screening: : Patient negative for fever greater than or equal to 101.5 degrees Fahrenheit, and additional compatible Ebola Virus Disease symptoms Patient denies exposure to infectious person Patient denies travel to an Ebola-affected area in the 21 days before illness onset. Screenin:06 Abuse screen: Denies threats or abuse. Denies injuries from another. Nutritional hj screening: No deficits noted. Tuberculosis screening: No symptoms or risk factors identified. Fall Risk None identified. Assessment: 10:23 General: Appears in no apparent distress. comfortable, well groomed, well developed, em well nourished, Behavior is calm, cooperative, Reports burning with urination for about 5 days Denies fever. Pain: Complains of pain in pelvis Pain currently is 0 out of 10 on a pain scale. at worst was 7 out of 10 on a pain scale. Pain began 2-3 days ago. Neuro: Level of Consciousness is awake, alert, obeys commands, Oriented to person, place, time, situation. Cardiovascular: Capillary refill < 3 seconds Patient's skin is warm and dry. Respiratory: Airway is patent Respiratory effort is even, unlabored, Respiratory pattern is regular, symmetrical. GI: Abdomen is flat, Bowel sounds present X 4 quads. Abd is soft and non tender X 4 quads. Patient currently denies nausea, vomiting. : Reports burning with urination, urinary frequency, Denies cramping discharge, vaginal bleeding. Derm: Skin is intact, is healthy with good turgor, Skin is pink, warm \T\ dry. Musculoskeletal: Range of motion: intact in all extremities. Vital Signs: 10:07 BP 96 / 73; Pulse 84; Resp 18; Temp 99.1(O); Pulse Ox 97% on R/A; Weight 73.94 kg; hj Height 5 ft. 6 in. (167.64 cm); Pain 0/10; 10:07 Body Mass Index 26.31 (73.94 kg, 167.64 cm) ED Course: 09:53 Patient arrived in ED. mr 09:53 Ramin Baptiste MD is Private Physician. mr 10:05 Triage completed. hj 10:07 Arm band placed on right wrist. hj 10:07 Patient has correct armband on for positive identification. Placed in gown. Bed in low hj position. Call light in reach. Side rails up X 1. 10:15 Ga[facility]ano Gonzalez [facility]. jr8 10:15 Momo Thacker MD is Attending Physician. jr8 10:38 Ramin Baptiste MD is Referral Physician. jr8 10:39 Anjel Cabral LVN is Primary Nurse. em 11:05 No provider procedures requiring assistance completed. Patient did not have IV access em during this emergency room visit. Administered Medications: No medications were administered Outcome: 10:39 Discharge ordered by MD. jr8 11:06 Discharged to home ambulatory. em 11:06 Condition: good 11:06 Discharge instructions given to patient, Instructed on discharge instructions, follow up and referral plans. medication usage, Demonstrated understanding of instructions, follow-up care, medications, Prescriptions given X 2. 11:06 Patient left the ED. em Addendum: 08/01/2018 07:55 Addendum: Culture Results: Positive urine culture. No further action required. Bacteria s s sensitive to prescribed antibiotic. Signatures: Chantal Spears mr CabralAnjel, ENGINEERING MECHANIC ENGINEERING MECHANIC em Rosalind Vallecillo, MERLYN RN Gaetano Gonzalez PA PA jr8 Zachary Olvera RN RN Corrections: (The following items were deleted from the chart) 07/29 10:05 10:03 Presenting complaint: Patient states: taylor been peeing every 5 mins and i its hj painful to pee for 5 days now; denies fever, reports chills; hj 10:12 10:03 Acuity: LUIS F 4 hj hj 10:12 10:07 Pulse 84bpm; Resp 18bpm; Pulse Ox 97% RA; Temp 99.1F Oral; 73.94 kg; Height 5 ft. hj 6 in.; BMI: 26.3; Pain 0/10; hj 10:47 10:03 Acuity: LUIS F 3 hj hj
--- NOTE | 2018-07-29 10:40 | EDPHYS ---
Physician Documentation [facility] Name: Keisha Dixon Age: 18 yrs Sex: Female : 2000 Arrival Date: 07/29/2018 Time: 09:53 Bed 16 Private MD: Ramin Baptiste ED Physician Momo Thacker HPI: 07/29 10:28 This 18 yrs old Female presents to ER via Ambulatory with complaints of jr8 Urinary Problem. 10:28 The patient presents with urinary symptoms, dysuria, frequency, urgency. Onset: The jr8 symptoms/episode began/occurred gradually, 1 week(s) ago. Modifying factors: The symptoms are alleviated by nothing, the symptoms are aggravated by urinating. Associated signs and symptoms: The patient has no apparent associated signs or symptoms. Severity of symptoms: At their worst the symptoms were mild, in the emergency department the symptoms are unchanged. The patient has experienced a previous episode. The patient has not recently seen a physician. 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 - Social history:: Smoking status: Patient uses tobacco products, Patient/guardian denies using alcohol. - Ebola Screening: : Patient negative for fever greater than or equal to 101.5 degrees Fahrenheit, and additional compatible Ebola Virus Disease symptoms Patient denies exposure to infectious person Patient denies travel to an Ebola-affected area in the 21 days before illness onset. ROS: 10:28 Eyes: Negative for injury, pain, redness, and discharge, ENT: Negative for injury, jr8 pain, and discharge, Neck: Negative for injury, pain, and swelling, Cardiovascular: Negative for chest pain, palpitations, and edema, Respiratory: Negative for shortness of breath, cough, wheezing, and pleuritic chest pain, Abdomen/GI: Negative for abdominal pain, nausea, vomiting, diarrhea, and constipation, Back: Negative for injury and pain, MS/Extremity: Negative for injury and deformity, Skin: Negative for injury, rash, and discoloration, Neuro: Negative for headache, weakness, numbness, tingling, and seizure. 10:28 : Positive for urinary symptoms, burning with urination, Negative for vaginal bleeding, vaginal discharge, vaginal itching, menstrual abnormality. Exam: 10:28 Eyes: Pupils equal round and reactive to light, extra-ocular motions intact. Lids and jr8 lashes normal. Conjunctiva and sclera are non-icteric and not injected. Cornea within normal limits. Periorbital areas with no swelling, redness, or edema. ENT: Nares patent. No nasal discharge, no septal abnormalities noted. Tympanic membranes are normal and external auditory canals are clear. Oropharynx with no redness, swelling, or masses, exudates, or evidence of obstruction, uvula midline. Mucous membranes moist. Neck: Trachea midline, no thyromegaly or masses palpated, and no cervical lymphadenopathy. Supple, full range of motion without nuchal rigidity, or vertebral point tenderness. No Meningismus. Cardiovascular: Regular rate and rhythm with a normal S1 and S2. No gallops, murmurs, or rubs. Normal PMI, no JVD. No pulse deficits. Respiratory: Lungs have equal breath sounds bilaterally, clear to auscultation and percussion. No rales, rhonchi or wheezes noted. No increased work of breathing, no retractions or nasal flaring. Abdomen/GI: Soft, non-tender, with normal bowel sounds. No distension or tympany. No guarding or rebound. No evidence of tenderness throughout. Back: No spinal tenderness. No costovertebral tenderness. Full range of motion. Skin: Warm, dry with normal turgor. Normal color with no rashes, no lesions, and no evidence of cellulitis. MS/ Extremity: Pulses equal, no cyanosis. Neurovascular intact. Full, normal range of motion. Neuro: Awake and alert, GCS 15, oriented to person, place, time, and situation. Cranial nerves II-XII grossly intact. Motor strength 5/5 in all extremities. Sensory grossly intact. Cerebellar exam normal. Normal gait. Vital Signs: 10:07 BP 96 / 73; Pulse 84; Resp 18; Temp 99.1(O); Pulse Ox 97% on R/A; Weight 73.94 kg; hj Height 5 ft. 6 in. (167.64 cm); Pain 0/10; 10:07 Body Mass Index 26.31 (73.94 kg, 167.64 cm) MDM: 10:24 Patient medically screened. jr8 10:28 Data reviewed: vital signs, nurses notes, lab test result(s), and as a result, I will jr8 discharge patient. Data interpreted: Pulse oximetry: on room air is 97 %. Interpretation: normal. Counseling: I had a detailed discussion with the patient and/or guardian regarding: the historical points, exam findings, and any diagnostic results supporting the discharge/admit diagnosis, lab results, the need for outpatient follow up, a family practitioner, to return to the emergency department if symptoms worsen or persist or if there are any questions or concerns that arise at home. 07/29 10:10 Order name: Urine Microscopic Only; Complete Time: 11:05 hj 07/29 10:28 Order name: Urine Dipstick--Ancillary (enter results); Complete Time: 11:05 iw 07/29 10:10 Order name: Urine Dipstick-Ancillary (obtain specimen); Complete Time: 10:28 07/29 10:28 Order name: Urine --Ancillary (enter results); Complete Time: 11:05 iw Administered Medications: No medications were administered Disposition: 19:10 Co-signature as Attending Physician, Momo Thacker MD I agree with the assessment and kdr plan of care. Disposition: 07/29/18 10:39 Discharged to Home. Impression: Dysuria, Urinary tract infection, site not specified. - Condition is Stable. - Discharge Instructions: Dysuria, Urinary Tract Infection, Adult. - Prescriptions for Pyridium 200 mg Oral Tablet - take 1 tablet by ORAL route every 8 hours for 3 days; 9 tablet. Macrobid 100 mg Oral Capsule - take 1 capsule by ORAL route every 12 hours for 7 days; 14 capsule. - Work release form, Medication Reconciliation Form, Thank You Letter, Antibiotic Education, Prescription Opioid Use form. - Follow up: Ramin Baptiste MD; When: 5 - 6 days; Reason: Recheck today's complaints, Continuance of care, Re-evaluation by your physician. - Problem is new. - Symptoms have improved. Signatures: Dispatcher [employer] Momo Gloria MD MD [facility] Anjel Cabral, CRYPTOANALYSIS TEACHER CRYPTOANALYSIS TEACHER Gaetano Rios PA PA jr8 Zachary Olvera RN RN hj Corrections: (The following items were deleted from the chart) 11:06 10:39 07/29/2018 10:39 Discharged to Home. Impression: Dysuria; Urinary tract em infection, site not specified. Condition is Stable. Forms are Medication Reconciliation Form, Thank You Letter, Antibiotic Education, Prescription Opioid Use. Follow up: Ramin Baptiste; When: 5 - 6 days; Reason: Recheck today's complaints, Continuance of care, Re-evaluation by your physician. Problem is new. Symptoms have improved. jr8
[2018-07-29 10:44] LABS: Urine Blood 2+ (NEG); Urine Glucose NEGATIVE (NEG); Urine Protein 2+ (NEG); Urine pH 8.5 (5.0-7.0)
[2018-07-29 11:05] LABS: Urine Bacteria >50 /HPF (<20); Urine Culture Reflex Order REFLEXED; Urine RBC 20-50 /HPF (NONE SEEN)
== END 2018-07-29 11:06 | disposition home or self-care (01) ==
LOC: ER 09:51
DX: N39.0 Urinary tract infection, site not specified (principal); F41.9 Anxiety disorder, unspecified; F32.9 Major depressive disorder, single episode, unspecified; F90.9 Attention-deficit hyperactivity disorder, unspecified type; Z72.0 Tobacco use
CPT/HCPCS: 81003; 81015; 81025; 87077; 87086; 87088; 87186; 99282

== ENCOUNTER 2018-09-05 23:52 | Emergency (ER) | payer BC ==
[2018-09-06] MEDS ORDERED: METOCLOPRAMIDE 10 MG/2mL INJ ONE (00:46)
[2018-09-06] MEDS ORDERED: DIPHENHYDRAMINE 50 MG/ML VIAL ONE (00:47)
[2018-09-06] MEDS ORDERED: NA CHLORIDE 0.9% 1,000 ML ONE (00:47)
[2018-09-06] MEDS ORDERED: KETOROLAC 30 MG/ML INJ ONE (00:47)
--- NOTE | 2018-09-06 01:19 | ER ---
Nurse's Notes [facility] Name: Keisha Dixon Age: 18 yrs Sex: Female : 2000 Arrival Date: 09/05/2018 Time: 23:54 Bed 2 Private MD: Ramin Baptiste Diagnosis: Headache Presentation: 09/06 00:04 Presenting complaint: Patient states: headache and dizziness at 1800. pt took advil at ak1 1800 and 2200 with no relief. pt with steady gait to restroom. Transition of care: patient was not received from another setting of care. Onset of symptoms was September 06, 2018. Risk Assessment: Do you want to hurt yourself or someone else? Patient reports no desire to harm self or others. Initial Sepsis Screen: Does the patient meet any 2 criteria? No. Patient's initial sepsis screen is negative. Does the patient have a suspected source of infection? No. Patient's initial sepsis screen is negative. Care prior to arrival: None. 00:04 Method Of Arrival: Ambulatory ak 00:04 Acuity: LUIS F 3 ak1 Triage Assessment: 00:52 Headache History: The patient has had previous headaches and this one is similar to jd3 previous episodes. 00:52 Pain: Pain at worst was 10 out of 10 on a pain scale. Pain began gradually, Also jd3 complains of nausea. 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 - Social history:: Smoking status: Patient uses tobacco products, smokes two packs cigarettes per day. - Ebola Screening: : No symptoms or risks identified at this time. Screenin:52 Abuse screen: Denies threats or abuse. Nutritional screening: No deficits noted. jd3 Tuberculosis screening: No symptoms or risk factors identified. Fall Risk IV access (20 points). Ambulatory Aid- None/Bed Rest/Nurse Assist (0 pts). Gait- Normal/Bed Rest/Wheelchair (0 pts) Mental Status- Oriented to own ability (0 pts). Total Potts Fall Scale indicates No Risk (0-24 pts). Assessment: 00:50 General: Appears in no apparent distress. uncomfortable, Behavior is calm, cooperative, jd3 appropriate for age. Pain: Complains of pain in head Quality of pain is described as aching. Neuro: Level of Consciousness is awake, alert, obeys commands, Oriented to person, place, time, situation, Appropriate for age Reports headache. Cardiovascular: Capillary refill < 3 seconds Patient's skin is warm and dry. Respiratory: Airway is patent Respiratory effort is even, unlabored, Respiratory pattern is regular, symmetrical. GI: No signs and/or symptoms were reported involving the gastrointestinal system. : No signs and/or symptoms were reported regarding the genitourinary system. EENT: No signs and/or symptoms were reported regarding the EENT system. Derm: Skin is intact, Skin is dry, Skin is normal, Skin temperature is warm. Musculoskeletal: Circulation, motion, and sensation intact. Range of motion: intact in all extremities. 01:05 Reassessment: Patient appears in no apparent distress at this time. Patient and/or jd3 family updated on plan of care and expected duration. Pain level reassessed. Patient is alert, oriented x 3, equal unlabored respirations, skin warm/dry/pink. Patient states feeling better. Vital Signs: 00:03 BP 120 / 71; Pulse 99; Resp 16; Temp 98.5(O); Pulse Ox 98% on R/A; Weight 86.18 kg (R); ak1 Height 5 ft. 7 in. (170.18 cm) (R); Pain 10/10; 01:13 BP 95 / 59 Supine; Pulse 78; Resp 16 S; Pulse Ox 98% on R/A; Pain 0/10; jd3 01:13 BP 106 / 63 Sitting; Pulse 76; jd3 01:14 BP 100 / 70 Standing; Pulse 79; jd3 00:03 Body Mass Index 29.76 (86.18 kg, 170.18 cm) ak1 Rafael Coma Score: 00:59 Eye Response: spontaneous(4). Verbal Response: oriented(5). Motor Response: obeys kb commands(6). Total: 15. ED Course: 09/05 23:54 Patient arrived in ED. am2 23:55 Ramin Baptiste MD is Private Physician. am2 04 00:03 Clarita Goddard FNP-C [facility]. kb 00:03 Luis Díaz MD is Attending Physician. kb 00:04 Roman Blank, MERLYN is Primary Nurse. jd3 00:05 Triage completed. ak1 00:06 Arm band placed on Patient placed in an exam room, on a stretcher, Patient notified of ak1 wait time. 00:30 Inserted saline lock: 22 gauge in right antecubital area, using aseptic technique. jd3 00:52 Patient has correct armband on for positive identification. Bed in low position. Call jd3 light in reach. Side rails up X 1. 01:37 No provider procedures requiring assistance completed. IV discontinued, intact, jd3 bleeding controlled, No redness/swelling at site. Pressure dressing applied. Administered Medications: 00:44 Drug: NS 0.9% 1000 ml Route: IV; Rate: 1000 ml; Site: right antecubital; jd3 01:39 Follow up: Response: No adverse reaction; IV Status: Completed infusion; IV Intake: jd3 1000ml 00:45 Drug: Reglan 10 mg Route: IVP; Site: right antecubital; jd3 01:39 Follow up: Response: No adverse reaction jd3 00:45 Drug: Benadryl 12.5 mg Route: IVP; Site: right antecubital; jd3 01:39 Follow up: Response: No adverse reaction jd3 00:45 Drug: TORadol 30 mg Route: IVP; Site: right antecubital; jd3 01:40 Follow up: Response: No adverse reaction jd3 Intake: 01:39 IV: 1000ml; Total: 1000ml. jd3 Outcome: 01:19 Discharge ordered by . kb 01:38 Discharged to home ambulatory, with family. jd3 01:38 Condition: stable 01:38 Discharge instructions given to patient, Instructed on discharge instructions, follow up and referral plans. Demonstrated understanding of instructions, follow-up care. 01:40 Patient left the ED. jd3 Signatures: Clarita Goddard FNP-C FNP-Ckb Krenek, Amber, RN RN ak1 Annika Benson am2 Roman Blank, MERLYN RN jd3 Corrections: (The following items were deleted from the chart) 01:14 01:13 BP 95 / 59; Pulse 78bpm; Resp 16bpm; Spontaneous; Pulse Ox 98% RA; Pain 0/10; jd3 jd3 01:14 01:05 Reassessment: Patient appears in no apparent distress at this time. Patient jd3 and/or family updated on plan of care and expected duration. Pain level reassessed. Patient is alert, oriented x 3, equal unlabored respirations, skin warm/dry/pink. jd3
--- NOTE | 2018-09-06 01:19 | EDPHYS ---
Physician Documentation [facility] Name: Keisha Dixon Age: 18 yrs Sex: Female : 2000 Arrival Date: 09/05/2018 Time: 23:54 Bed 2 Private MD: Ramin Baptiste ED Physician Luis Díaz HPI: 09/06 00:59 This 18 yrs old Female presents to ER via Ambulatory with complaints of kb Headache, Dizziness. 00:59 The patient complains of pain to the head. The patient describes the headache as kb throbbing. Onset: The symptoms/episode began/occurred 7 hour(s) ago. Associated signs and symptoms: Pertinent positives: dizziness. Severity of symptoms: At its worst the pain was moderate, in the emergency department the pain is unchanged. Headache History: The patient has had previous headaches and this one is similar to previous episodes. The symptoms are alleviated by nothing. the symptoms are aggravated by nothing. The patient has experienced similar episodes in the past, a few times. The patient has not recently seen a physician. 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 - Social history:: Smoking status: Patient uses tobacco products, smokes two packs cigarettes per day. - Ebola Screening: : No symptoms or risks identified at this time. ROS: 00:59 Constitutional: Negative for fever, chills, and weight loss, ENT: Negative for injury, kb pain, and discharge, Neck: Negative for injury, pain, and swelling, Cardiovascular: Negative for chest pain, palpitations, and edema, Respiratory: Negative for shortness of breath, cough, wheezing, and pleuritic chest pain, Abdomen/GI: Negative for abdominal pain, nausea, vomiting, diarrhea, and constipation, Back: Negative for injury and pain, MS/Extremity: Negative for injury and deformity, Skin: Negative for injury, rash, and discoloration. 00:59 Neuro: Positive for dizziness, headache. Exam: 00:59 Constitutional: This is a well developed, well nourished patient who is awake, alert, kb and in no acute distress. Head/Face: Normocephalic, atraumatic. Eyes: Pupils equal round and reactive to light, extra-ocular motions intact. Lids and lashes normal. Conjunctiva and sclera are non-icteric and not injected. Cornea within normal limits. Periorbital areas with no swelling, redness, or edema. ENT: Nares patent. No nasal discharge, no septal abnormalities noted. Tympanic membranes are normal and external auditory canals are clear. Oropharynx with no redness, swelling, or masses, exudates, or evidence of obstruction, uvula midline. Mucous membranes moist. Neck: Trachea midline, no thyromegaly or masses palpated, and no cervical lymphadenopathy. Supple, full range of motion without nuchal rigidity, or vertebral point tenderness. No Meningismus. Chest/axilla: Normal chest wall appearance and motion. Nontender with no deformity. No lesions are appreciated. Cardiovascular: Regular rate and rhythm with a normal S1 and S2. No gallops, murmurs, or rubs. Normal PMI, no JVD. No pulse deficits. Respiratory: Lungs have equal breath sounds bilaterally, clear to auscultation and percussion. No rales, rhonchi or wheezes noted. No increased work of breathing, no retractions or nasal flaring. Abdomen/GI: Soft, non-tender, with normal bowel sounds. No distension or tympany. No guarding or rebound. No evidence of tenderness throughout. Skin: Warm, dry with normal turgor. Normal color with no rashes, no lesions, and no evidence of cellulitis. MS/ Extremity: Pulses equal, no cyanosis. Neurovascular intact. Full, normal range of motion. Neuro: Awake and alert, GCS 15, oriented to person, place, time, and situation. Cranial nerves II-XII grossly intact. Motor strength 5/5 in all extremities. Sensory grossly intact. Cerebellar exam normal. Normal gait. Vital Signs: 00:03 BP 120 / 71; Pulse 99; Resp 16; Temp 98.5(O); Pulse Ox 98% on R/A; Weight 86.18 kg (R); ak1 Height 5 ft. 7 in. (170.18 cm) (R); Pain 10/10; 01:13 BP 95 / 59 Supine; Pulse 78; Resp 16 S; Pulse Ox 98% on R/A; Pain 0/10; jd3 01:13 BP 106 / 63 Sitting; Pulse 76; jd3 01:14 BP 100 / 70 Standing; Pulse 79; jd3 00:03 Body Mass Index 29.76 (86.18 kg, 170.18 cm) ak1 Rafael Coma Score: 00:59 Eye Response: spontaneous(4). Verbal Response: oriented(5). Motor Response: obeys kb commands(6). Total: 15. MDM: 00:03 Patient medically screened. kb 00:59 Data reviewed: vital signs, nurses notes. Data interpreted: Pulse oximetry: on room air kb is 98 %. Interpretation: normal. 01:18 Counseling: I had a detailed discussion with the patient and/or guardian regarding: the kb historical points, exam findings, and any diagnostic results supporting the discharge/admit diagnosis, the need for outpatient follow up, a family practitioner, to return to the emergency department if symptoms worsen or persist or if there are any questions or concerns that arise at home. 09/06 00:14 Order name: Urine Dipstick--Ancillary (enter results); Complete Time: 01:27 ar5 09/06 00:14 Order name: Urine --Ancillary (enter results); Complete Time: 01:27 ar5 09/06 00:07 Order name: Orthostatics; Complete Time: 01:15 kb 04 00:19 Order name: IV Start; Complete Time: 00:44 kb Administered Medications: 00:44 Drug: NS 0.9% 1000 ml Route: IV; Rate: 1000 ml; Site: right antecubital; jd3 01:39 Follow up: Response: No adverse reaction; IV Status: Completed infusion; IV Intake: jd3 1000ml 00:45 Drug: Reglan 10 mg Route: IVP; Site: right antecubital; jd3 01:39 Follow up: Response: No adverse reaction jd3 00:45 Drug: Benadryl 12.5 mg Route: IVP; Site: right antecubital; jd3 01:39 Follow up: Response: No adverse reaction jd3 00:45 Drug: TORadol 30 mg Route: IVP; Site: right antecubital; jd3 01:40 Follow up: Response: No adverse reaction jd3 Disposition: 09/06/18 01:19 Discharged to Home. Impression: Headache. - Condition is Stable. - Discharge Instructions: Migraine Headache, [id number]. - Medication Reconciliation Form, Thank You Letter, Antibiotic Education, Prescription Opioid Use form. - Follow up: Emergency Department; When: As needed; Reason: Worsening of condition. Follow up: Private Physician; When: 2 - 3 days; Reason: Recheck today's complaints, Continuance of care, Re-evaluation by your physician. Signatures: Dispatcher [employer] EDKY Clarita Goddard, BUSINESS APPLICATIONS ANALYST-C BUSINESS APPLICATIONS ANALYST-Jodie García RN RN ak1 Roman Blank RN RN jd3 Corrections: (The following items were deleted from the chart) 01:40 01:19 09/06/2018 01:19 Discharged to Home. Impression: Headache. Condition is Stable. jd3 Forms are Medication Reconciliation Form, Thank You Letter, Antibiotic Education, Prescription Opioid Use. Follow up: Emergency Department; When: As needed; Reason: Worsening of condition. Follow up: Private Physician; When: 2 - 3 days; Reason: Recheck today's complaints, Continuance of care, Re-evaluation by your physician. kb
[2018-09-06 01:24] LABS: Urine Blood NEGATIVE (NEG); Urine Glucose NEGATIVE (NEG); Urine Protein NEGATIVE (NEG)
== END 2018-09-06 01:40 | disposition home or self-care (01) ==
LOC: ER 23:52
DX: R51 Headache (principal); F41.9 Anxiety disorder, unspecified; F32.9 Major depressive disorder, single episode, unspecified; F90.9 Attention-deficit hyperactivity disorder, unspecified type; F17.210 Nicotine dependence, cigarettes, uncomplicated
CPT/HCPCS: 81003; 81025; 96361; 96374; 96375; 99283; J2765; J7030